=== PATIENT | female | born 1950 | race Caucasian/White ===

== ENCOUNTER 2016-06-06 16:48 | Inpatient (IN) | payer OTHER ==
[~2016-06-06] VITALS: Ht 152.4 cm; Wt 74.8 kg
--- NOTE | 2016-06-06 17:09 | NUR ---
Pt brought to bed 1b via private ambulance, dr potter at bedside for exam.
--- NOTE | 2016-06-06 17:10 | NUR ---
pt cleared and ready for transfer to [facility].
[2016-06-06] MEDS ORDERED: AMLO5TAB2 PO (17:25)
[2016-06-06] MEDS ORDERED: METH2.5T PO (17:25)
[2016-06-06] MEDS ORDERED: HYDR-552 PO (17:25)
[2016-06-06] MEDS ORDERED: OMEP40CA37 PO (17:25)
[2016-06-06] MEDS ORDERED: CLON2TAB4 PO (17:25)
[2016-06-06] MEDS ORDERED: GABA600T2 PO (17:25)
[2016-06-06] MEDS ORDERED: DULO60CA63 PO (17:25)
[2016-06-06] MEDS ORDERED: FOLI1TAB16 PO (17:25)
[2016-06-06] MEDS ORDERED: CIPR-262 PO (17:25)
[2016-06-06] MEDS ORDERED: HYDR200T4 PO (17:25)
[2016-06-06] MEDS ORDERED: LEVO100T10 PO (17:25)
[2016-06-06] MEDS ORDERED: SENN8.6T22 PO (17:25)
[2016-06-06] MEDS ORDERED: BUSP15TA3 PO (17:25)
[2016-06-06] MEDS ORDERED: BACL10TA PO (17:25)
[2016-06-06] MEDS ORDERED: LAMO25TA PO (17:25)
[2016-06-06] MEDS ORDERED: CHOL50004 PO (17:25)
[2016-06-06] MEDS ORDERED: ESCI20TA PO (17:25)
[2016-06-06] MEDS ORDERED: ALPR0.25 PO (17:25)
[2016-06-06 17:30] VITALS: BP 136/72
[2016-06-06] MEDS ORDERED: ACETAMINOPHEN 325 MG TABLET PO PRN (17:45)
[2016-06-06] MEDS ORDERED: MAG HYDROX/AL HYDROX/SIMETH 30 ML LIQUID UDC PO PRN (17:45)
[2016-06-06] MEDS ORDERED: MAGNESIUM HYDROXIDE 30 ML LIQUID UDC PO PRN (17:45)
--- NOTE | 2016-06-06 18:39 | NUR ---
SPOKE WITH DR AWAN, NOTIFIED OF NEW ADMISSION.
--- NOTE | 2016-06-06 18:50 | NUR ---
SPOKE WITH MARYJANE, STATES GABBAPENTIN IS TAKEN FOR "NERVES".
--- NOTE | 2016-06-06 18:51 | NUR ---
SPOKE WITH DR SHEIKH, ASKED HIM TO RECONCILE MEDS AND NOTIFIED HIM THE PT IS ON SEIZURE MEDS.
[2016-06-06] MEDS ORDERED: TEMAZEPAM 7.5 MG CAPSULE PO PRN (19:00)
[2016-06-06] MEDS ORDERED: METHOTREXATE SODIUM 2.5 MG TABLET PO SCH (19:15)
[2016-06-06] MEDS ORDERED: AMLODIPINE 5 MG TABLET PO SCH (19:15)
[2016-06-06] MEDS: LORAZEPAM 1 MG TABLET PO PRN (19:52)
[2016-06-06 20:00] VITALS: BP 129/72
[2016-06-06] MEDS: HYDROCODONE/APAP 5-325MG TABLET PO PRN (20:46)
[2016-06-06] MEDS: SENNOSIDES 1 TABLET PO SCH (20:56)
[2016-06-06] MEDS: AMLODIPINE 5 MG TABLET PO SCH (20:56)
--- NOTE | 2016-06-06 22:00 | NUR ---
received to care, sitting at nurses station, appearing anxious, but pleasant when approached. spoke to her spouse on the phone, and was given PRN naun, at 1951. by 2045, she stated that she felt less anxious, but was c/o severe pain (9/10)to the bilateral neck, so PRN norco, was given. as of 2199, she states minimal relief, 6/10. currently in activity room, watching tv. will continue to monitor closely.
[2016-06-06] MEDS: BACLOFEN 10 MG TABLET PO PRN (22:05)
--- NOTE | 2016-06-06 22:05 | NUR ---
PRN baclofen given for bilateral neck pain, 6/10, on pain scale.
--- NOTE | 2016-06-06 23:00 | NUR ---
states pain is now 5/10.
--- NOTE | 2016-06-07 00:30 | NUR ---
remains awake. PRN restoril was given, at this time.
--- NOTE | 2016-06-07 02:00 | NUR ---
remains awake. assisted to the bathroom, and bed. will continue to monitor closely.
--- NOTE | 2016-06-07 03:00 | NUR ---
appears to be asleep.
[2016-06-07] MEDS: HYDROCODONE/APAP 5-325MG TABLET PO PRN ×4 (03:46→20:32)
--- NOTE | 2016-06-07 03:46 | NUR ---
is now awake. c/o severe(9/10) pain to the bilateral neck. PRN norco was given at this time, at her request.
--- NOTE | 2016-06-07 04:46 | NUR ---
states moderate relief(6/10), from [place].
--- NOTE | 2016-06-07 05:00 | NUR ---
pt has been very manipulative over the course of the shift, attempting to split staff, accusing staff of "messing with" her, and accusing staff of switching chairs when she was in the bathroom, and stating that she only wants this fha underwriter, to assist her. pt was reassured. limits set on behavior. will continue to monitor closely.
[2016-06-07] MEDS: LORAZEPAM 1 MG TABLET PO PRN ×3 (05:25→15:54)
--- NOTE | 2016-06-07 05:25 | NUR ---
PRN ativan given for anxiety/agitation.
--- NOTE | 2016-06-07 06:39 | NUR ---
slept 1.25 hours, last night. is now dozing off to sleep. no distress noted.
[2016-06-07] MEDS ORDERED: LEVOTHYROXINE SODIUM 100 MCG TABLET PO SCH (07:00)
[2016-06-07 07:03] LABS: BASOPHILS % (AUTO) 0.4 % (0.0-2.0); EOSINOPHILS # (AUTO) 0.1 K/uL (0.0-0.7); HEMATOCRIT 44.5 % (37.0-47.0); LYMPHOCYTES # (AUTO) 2.9 K/uL (0.8-4.8); LYMPHOCYTES % (AUTO) 27.1 % (20.5-51.5); MEAN CORPUSCULAR HGB CONC 34 g/dL (32.0-37.0); MEAN CORPUSCULAR VOLUME 97.6 fL (81.0-99.0); MONOCYTES # (AUTO) 0.6 K/uL (0.1-1.30); MONOCYTES % (AUTO) 5.6 % (0.0-11.0); NEUTROPHILS # (AUTO) 7.1 K/uL (1.8-8.9); NEUTROPHILS % (AUTO) 65.9 % (38.5-71.5); PLATELET COUNT (AUTO) 215 K/uL (150-450); RED BLOOD CELL COUNT(AUTO) 4.56 MIL/uL (4.20-5.40); RED CELL DISTRIBUTION WIDTH 14.2 % (11.5-14.5); WHITE BLOOD COUNT (AUTO) 10.7 K/uL (4.0-11.2)
[2016-06-07 07:30] VITALS: BP 150/76
[2016-06-07 08:32] LABS: THYROID STIMULATING HORMONE 20.288 mIU/mL (0.358-3.740)
[2016-06-07] MEDS: CHOLECALCIFEROL 1,000 UNIT TABLET PO SCH (08:39)
[2016-06-07] MEDS: LAMOTRIGINE 25 MG TABLET PO SCH (08:39)
[2016-06-07] MEDS: NICOTINE 21 MG/24HR PATCH TD SCH (08:40)
[2016-06-07] MEDS: FOLIC ACID 1 MG TABLET PO SCH (08:40)
[2016-06-07] MEDS: HYDROXYCHLOROQUINE SULFATE 200 MG TABLET PO SCH ×2 (08:40→17:34)
[2016-06-07] MEDS: AMLODIPINE 5 MG TABLET PO SCH ×2 (08:40→20:22)
[2016-06-07 08:41] LABS: ALBUMIN 3.7 g/dL (3.4-5.0); BILIRUBIN,TOTAL 0.5 mg/dL (0.2-1.0); PHOSPHOROUS 4.3 mg/dL (2.5-4.9); POTASSIUM 3.8 mmol/L (3.5-5.1); TOTAL PROTEIN, SERUM 7.4 g/dL (6.4-8.2)
--- NOTE | 2016-06-07 10:57 | NUR ---
Initial discharge plan: SW spoke with patient regarding initial discharge plan.She resides within a home ([address] [place] [address];[place] [address]) with her (Edwin, ).She reported wanting to return home once cleared for discharge.She reported that her could provide transportation back home.SW attempted to contact her , but was unable to reach him.MIKEY left a voicemail for the pt's and is awaiting communication.MIKEY will speak to MD, pt, and family to ensure a safe discharge plan is created.MIKEY will ensure a proper discharge plan is created.
--- NOTE | 2016-06-07 13:00 | NUR ---
GPS/RN- patient visiting today at 1230pm, Jose Luis. Patients asked if he had anything to disclose of belongings or anything being brought in, he verbalized that he was just bringing in some clothing, shampoo and conditioner. Belongings logged. Shampoo and conditioner placed in her locker, available to use when needed. Upon visit with the , I entered the room to place patients clothing in her night stand, observed patients placing white round pills in patients right hand at this time. patient closing hand immediately upon noticing I was in room. Patient instructed to please step out of the unit at this time. patient instructed to empty her hand. patient placing three pills on over head table, not opening her hand completely but keeping two fingers closed, patient redirected to open her hand completely again, two more white pills came out of her hand. Pills noted are TEVA white round with numbers 834, pills are Clonazepam 2mg each, total of 5 pills= 10mg. patient checked for further contraband at this time. Discussed with patient at great length that medications are not allowed to be brought from home unless needed , medications need to be checked in with nurses and discussed with Medical doctor or Psychiatrist to administer if we do not carry anything formulary. patient redirected at this time. Dr Nuñez informed. Spoke with patients Jose Luis, educated on medication administration, security at side. verbalized he understands, he verbalized " she kept bugging me for it so I brought it". He confirmed that it was in fact Clonazepam that he brought. Juliana, Nursing [place] Chalker, notified about incident . was asked to leave at this time due to safety. verbalized understanding.
[2016-06-07] MEDS: BACLOFEN 10 MG TABLET PO PRN (13:01)
--- NOTE | 2016-06-07 13:05 | NUR ---
Reviewed psychosocial done by Eduar Oconnor. Addendum: 06/07/16 at 1320 by ABBI JENSEN Amended: Links added.
--- NOTE | 2016-06-07 13:14 | NUR ---
WOUND CARE CONSULT: PATIENT SEEN AND SKIN ASSESSMENT DONE. PATIENT ALERT, AMBULATORY WITH WALKER, INDEPENDENT WITH BED MOBILITY, CONTINENT, JEANNE 18. SEE TODAY'S SKIN ASSESSMENT IN PCS ALONG WITH RECOMMENDATIONS DISCUSSED WITH NURSING STAFF. MD IN AGREEMENT WITH PLAN OF CARE. Addendum: 06/07/16 at 1316 by JONO ANNE WNDNU Amended: Links added.
[2016-06-07] MEDS: NEOMY/BACITRAC/POLYMI OINT 28.35 GM TUBE TOP SCH ×2 (13:15→18:00)
--- NOTE | 2016-06-07 15:15 | NUR ---
UR Note: MIKEY spoke with Cyndie MIRAMONTES at [facility] [ [id number]/ Fx: [phone]] and faxed current clinicals. Cyndie confirmed she received clinicals, and is awaiting authorization. Tracking #[id number]
[2016-06-07 15:24] VITALS: BP 131/70
[2016-06-07] MEDS ORDERED: busPIRone 10 MG TABLET PO SCH ×2 (17:00→20:30)
--- NOTE | 2016-06-07 17:00 | NUR ---
GPS/RN- Discussed with Dr Motta upon rounds again earlier incident, bringing in narcotic medication to patient. Incident discussed with Garage Door Service Technician of Automobile Upholstery Trim Installer Rebecca as well. Denial of rights done at this time for the right to visitor, patient may not be visited by her Jose Luis due to high risk incident. brought in 5 tablets, they were Clonazepam 2mg tablets for a total of 10mg. Patient notified and contacted Jose Luis, verbalized understanding.
[2016-06-07] MEDS: ESCITALOPRAM OXALATE 10 MG TABLET PO SCH (17:34)
[2016-06-07] MEDS: DULOXETINE 60 MG CAPSULE.DR PO SCH (17:34)
[2016-06-07] MEDS: CLONAZEPAM 1 MG TABLET PO PRN (19:55)
[2016-06-07 20:13] VITALS: BP 121/82
[2016-06-07] MEDS: SENNOSIDES 1 TABLET PO SCH (20:22)
[2016-06-07] MEDS: SULFAMETH/TRIMETH 800/160 MG TABLET PO SCH (20:22)
--- NOTE | 2016-06-07 22:00 | NUR ---
received to care, visible on unit, pleasant upon approach. interacts minimally with peers, but is able to make her needs known, to staff. PRN sameeraonopin was given, at 1954, for anxiety, which was effective, by 2099. PRN adeco was given at 2031 for bilateral neck pain 9/10, which was effective(5/10), by 2129. she was assisted with taking her contact lenses out, and is lying in bed. no distress noted. will continue to monitor closely.
--- NOTE | 2016-06-07 22:40 | NUR ---
appears to be asleep. no distress noted.
[2016-06-08] MEDS: HYDROCODONE/APAP 5-325MG TABLET PO PRN ×4 (02:33→21:18)
[2016-06-08] MEDS: CLONAZEPAM 1 MG TABLET PO PRN ×3 (04:45→20:02)
--- NOTE | 2016-06-08 04:45 | NUR ---
PRN klonopin given for anxiety.
[2016-06-08] MEDS: LEVOTHYROXINE SODIUM 125 MCG TABLET PO SCH (06:36)
[2016-06-08 07:30] VITALS: BP 123/78
[2016-06-08] MEDS: NICOTINE 21 MG/24HR PATCH TD SCH (09:02)
[2016-06-08] MEDS: DULOXETINE 60 MG CAPSULE.DR PO SCH (09:02)
[2016-06-08] MEDS: FOLIC ACID 1 MG TABLET PO SCH (09:02)
[2016-06-08] MEDS: SULFAMETH/TRIMETH 800/160 MG TABLET PO SCH ×2 (09:03→20:02)
[2016-06-08] MEDS: LAMOTRIGINE 25 MG TABLET PO SCH (09:03)
[2016-06-08] MEDS: ESCITALOPRAM OXALATE 10 MG TABLET PO SCH (09:03)
[2016-06-08] MEDS: CHOLECALCIFEROL 1,000 UNIT TABLET PO SCH (09:04)
[2016-06-08] MEDS: AMLODIPINE 5 MG TABLET PO SCH ×2 (09:05→20:02)
[2016-06-08] MEDS: HYDROXYCHLOROQUINE SULFATE 200 MG TABLET PO SCH ×2 (10:14→16:13)
[2016-06-08] MEDS: NEOMY/BACITRAC/POLYMI OINT 28.35 GM TUBE TOP SCH (10:32)
[2016-06-08] MEDS: BACLOFEN 10 MG TABLET PO PRN ×2 (12:11→20:02)
[2016-06-08] MEDS ORDERED: PNEUMOCOCCAL 23-VAL P-SAC VAC 0.5 ML VIAL IM ONE (15:45)
[2016-06-08 16:00] VITALS: BP 123/63
[2016-06-08] MEDS: busPIRone 5 MG TABLET PO SCH (16:13)
[2016-06-08] MEDS: SENNOSIDES 1 TABLET PO SCH (20:02)
[2016-06-08 20:03] VITALS: BP 133/68
[2016-06-09] MEDS: HYDROCODONE/APAP 5-325MG TABLET PO PRN ×2 (04:07→10:16)
[2016-06-09] MEDS: LEVOTHYROXINE SODIUM 125 MCG TABLET PO SCH (06:14)
[2016-06-09] MEDS: CLONAZEPAM 1 MG TABLET PO PRN (06:14)
[2016-06-09 07:30] VITALS: BP 114/58
[2016-06-09] MEDS: busPIRone 5 MG TABLET PO SCH (08:11)
[2016-06-09] MEDS: NICOTINE 21 MG/24HR PATCH TD SCH (08:11)
[2016-06-09] MEDS: LAMOTRIGINE 25 MG TABLET PO SCH (08:12)
[2016-06-09] MEDS: BACLOFEN 10 MG TABLET PO PRN (08:12)
[2016-06-09] MEDS: FOLIC ACID 1 MG TABLET PO SCH (08:12)
[2016-06-09] MEDS: CHOLECALCIFEROL 1,000 UNIT TABLET PO SCH (08:12)
[2016-06-09] MEDS: DULOXETINE 60 MG CAPSULE.DR PO SCH (08:12)
[2016-06-09] MEDS: SULFAMETH/TRIMETH 800/160 MG TABLET PO SCH (08:12)
[2016-06-09] MEDS: ESCITALOPRAM OXALATE 10 MG TABLET PO SCH (08:12)
[2016-06-09] MEDS: HYDROXYCHLOROQUINE SULFATE 200 MG TABLET PO SCH (08:12)
[2016-06-09 08:13] VITALS: BP 114/58
[2016-06-09] MEDS: AMLODIPINE 5 MG TABLET PO SCH (08:13)
[2016-06-09] MEDS: NEOMY/BACITRAC/POLYMI OINT 28.35 GM TUBE TOP SCH (09:15)
--- NOTE | 2016-06-09 09:24 | NUR ---
Pt states she has all medications listed on TMS at home, and does not need any prescriptions. Stated the only prescription she needs is antibiotic.
--- NOTE | 2016-06-09 11:25 | NUR ---
GPS: Nursing Notes: Discharge Notes: Patient is awake and responding to her name, cooperative and pleasant with staff, A/Ox4, compliant with her medications, ambulatory, self care, denies any SI/HI, denies any AH/VH, denies any SOB, denies any pain or discomfort at this time, medicated for pain per MD orders, discharge home with her , Edwin Soliz at [address] [place] [address], prescription and instructions given to patient, took all her belongings with her, transported home via private vehicle with her Edwincaridad Soliz, patient to follow up with her own psychiatrist and mailhouse operator as soon as possible, patient stated , 'Yes, I have all my medications at home.. I will see my own doctors.."
[2016-06-12] MEDS ORDERED: METHOTREXATE SODIUM 2.5 MG TABLET PO SCH (09:00)
[2016-06-19] MEDS ORDERED: METHOTREXATE SODIUM 2.5 MG TABLET PO SCH (09:00)
== END 2016-06-09 11:30 | disposition home or self-care (01) | DRG 881 ==
LOC: ER 16:53 → GPS 17:22
PROVIDERS: ADMIT Psychiatry & Neurology Psychiatry; ATTEND Psychiatry & Neurology Psychiatry
DX: F32.9 Major depressive disorder, single episode, unspecified (principal); F11.20 Opioid dependence, uncomplicated; F13.20 Sedative, hypnotic or anxiolytic dependence, uncomplicated; F29 Unspecified psychosis not due to a substance or known physiological condition; G40.909 Epilepsy, unspecified, not intractable, without status epilepticus; F41.9 Anxiety disorder, unspecified; G89.29 Other chronic pain; E03.9 Hypothyroidism, unspecified; I10 Essential (primary) hypertension; F17.210 Nicotine dependence, cigarettes, uncomplicated; R73.03 Prediabetes; L98.419 Non-pressure chronic ulcer of buttock with unspecified severity; Z87.828 Personal history of other (healed) physical injury and trauma; E83.119 Hemochromatosis, unspecified; Z86.59 Personal history of other mental and behavioral disorders; L02.32 Furuncle of buttock
CPT/HCPCS: 36415; 83550; 83735; 84100; 84443; 85025; 86140; 90732; A4663

== ENCOUNTER 2017-05-25 21:43 | Inpatient (IN) | payer OTHER ==
[~2017-05-25] VITALS: Ht 177.8 cm; Wt 73.5 kg
[~2017-05-25 21:43] MED LIST: AMLO5TAB2 PO; BACL10TA PO; CHOL50004 PO; CIPR-262 PO; FOLI1TAB16 PO; HYDR-552 PO; HYDR200T4 PO; LAMO25TA PO; LEVO100T10 PO; METH2.5T PO; OMEP40CA37 PO; SENN8.6T22 PO
[2017-05-25] MEDS ORDERED: CIPR500T5 PO (22:50)
[2017-05-25] MEDS ORDERED: CLON2TAB4 PO (22:50)
[2017-05-25] MEDS ORDERED: DULO60CA45 PO (22:50)
[2017-05-25] MEDS ORDERED: ALPR0.255 PO (22:50)
[2017-05-25] MEDS ORDERED: ESCI20TA PO (22:50)
[2017-05-25] MEDS ORDERED: BUSP15TA3 PO (22:50)
[2017-05-25] MEDS ORDERED: GABA600T2 PO (22:50)
[2017-05-26] MEDS ORDERED: LORAZEPAM 0.5 MG TABLET PO PRN (01:15)
[2017-05-26] MEDS ORDERED: ZOLPIDEM 5 MG TABLET PO PRN (01:15)
[2017-05-26] MEDS ORDERED: MAG HYDROX/AL HYDROX/SIMETH 30 ML LIQUID UDC PO PRN (01:15)
[2017-05-26] MEDS ORDERED: MAGNESIUM HYDROXIDE 30 ML LIQUID UDC PO PRN (01:15)
[2017-05-26] MEDS ORDERED: ACETAMINOPHEN 325 MG TABLET PO PRN (01:15)
[2017-05-26 01:30] VITALS: BP 144/67
[2017-05-26] MEDS ORDERED: LORAZEPAM 1 MG TABLET PO PRN (07:15)
[2017-05-26 07:30] VITALS: BP 142/65
[2017-05-26 12:03] LABS: BASOPHILS # (AUTO) 0.1 K/uL (0.0-8.0); BASOPHILS % (AUTO) 0.8 % (0.0-2.0); EOSINOPHILS % (AUTO) 0.1 % (0.0-7.0); HEMATOCRIT 40.8 % (31.2-41.9); HEMOGLOBIN 14.3 g/dL (10.9-14.3); LYMPHOCYTES # (AUTO) 0.9 K/uL (20.0-40.0); LYMPHOCYTES % (AUTO) 14.4 % (20.5-51.5); MEAN CORPUSCULAR HEMOGLOBIN 34.6 uug (24.7-32.8); MEAN CORPUSCULAR HGB CONC 35 g/dL (32.3-35.6); MEAN CORPUSCULAR VOLUME 98.8 fL (75.5-95.3); MONOCYTES # (AUTO) 0.4 K/uL (2.0-10.0); MONOCYTES % (AUTO) 7.1 % (0.0-11.0); NEUTROPHILS # (AUTO) 4.8 K/uL (1.8-8.9); NEUTROPHILS % (AUTO) 77.6 % (38.5-71.5); PLATELET COUNT (AUTO) 280 K/uL (179-408); RED BLOOD CELL COUNT(AUTO) 4.13 MIL/uL (3.63-4.92); WHITE BLOOD COUNT (AUTO) 6.2 K/uL (3.8-11.8)
[2017-05-26 12:08] LABS: CREATININE 0.8 mg/dL (0.6-1.3); POTASSIUM 3.4 mmol/L (3.5-5.1)
[2017-05-26 13:23] LABS: IRON, SERUM 62 ug/dL (50-175)
[2017-05-26 13:33] LABS: THYROID STIMULATING HORMONE 7.257 mIU/mL (0.358-3.740)
[2017-05-26 13:51] LABS: BILIRUBIN,DIRECT 0.1 mg/dL (0.0-0.2); BILIRUBIN,TOTAL 0.5 mg/dL (0.2-1.0); PHOSPHOROUS 4.2 mg/dL (2.5-4.9); TOTAL PROTEIN, SERUM 7.1 g/dL (6.4-8.2)
[2017-05-26] MEDS: FOLIC ACID 1 MG TABLET PO SCH (13:59)
[2017-05-26] MEDS: DULOXETINE 60 MG CAPSULE.DR PO SCH (13:59)
[2017-05-26] MEDS: busPIRone 5 MG TABLET PO SCH ×2 (13:59→16:38)
[2017-05-26] MEDS: ESCITALOPRAM OXALATE 10 MG TABLET NG SCH (13:59)
[2017-05-26] MEDS: GABAPENTIN 300 MG CAPSULE PO SCH ×2 (13:59→16:38)
[2017-05-26] MEDS: LAMOTRIGINE 25 MG TABLET PO SCH ×2 (14:00→20:10)
[2017-05-26] MEDS: CLONAZEPAM 0.5 MG TABLET PO SCH ×2 (14:00→16:39)
[2017-05-26] MEDS: PANTOPRAZOLE SODIUM 40 MG TABLET.DR PO SCH (14:00)
[2017-05-26] MEDS ORDERED: BACL10TA PO (14:18)
[2017-05-26] MEDS ORDERED: POTASSIUM CHLORIDE 20 MEQ TAB.PRT.SR PO ONE (14:45)
[2017-05-26 15:14] VITALS: BP 140/74
[2017-05-26] MEDS: AMLODIPINE 5 MG TABLET PO SCH (16:39)
[2017-05-26] MEDS: HYDROXYCHLOROQUINE SULFATE 200 MG TABLET PO SCH (16:43)
[2017-05-26] MEDS: SENNOSIDES 1 TABLET PO SCH (20:10)
[2017-05-26 20:27] VITALS: BP 137/58
[2017-05-27] MEDS: HYDROCODONE/APAP 5-325MG TABLET PO PRN ×2 (01:27→20:36)
[2017-05-27] MEDS: LEVOTHYROXINE SODIUM 100 MCG TABLET PO SCH (06:00)
[2017-05-27] MEDS: PANTOPRAZOLE SODIUM 40 MG TABLET.DR PO SCH (06:00)
[2017-05-27 08:00] VITALS: BP 144/76
[2017-05-27] MEDS ORDERED: LEVOTHYROXINE SODIUM 100 MCG TABLET PO SCH (09:00)
[2017-05-27] MEDS: ESCITALOPRAM OXALATE 10 MG TABLET NG SCH (09:08)
[2017-05-27] MEDS: CLONAZEPAM 0.5 MG TABLET PO SCH ×3 (09:08→17:09)
[2017-05-27] MEDS: DULOXETINE 60 MG CAPSULE.DR PO SCH (09:08)
[2017-05-27] MEDS: LAMOTRIGINE 25 MG TABLET PO SCH ×2 (09:08→20:25)
[2017-05-27] MEDS: FOLIC ACID 1 MG TABLET PO SCH (09:08)
[2017-05-27] MEDS: GABAPENTIN 300 MG CAPSULE PO SCH ×3 (09:09→17:09)
[2017-05-27] MEDS: HYDROXYCHLOROQUINE SULFATE 200 MG TABLET PO SCH ×2 (09:09→17:10)
[2017-05-27] MEDS: AMLODIPINE 5 MG TABLET PO SCH ×2 (09:09→17:10)
[2017-05-27] MEDS: busPIRone 5 MG TABLET PO SCH ×3 (09:09→17:09)
[2017-05-27] MEDS ORDERED: Z GUARD REMEDY PASTE 57 GM TUBE TOP PRN (12:15)
[2017-05-27 16:00] VITALS: BP 133/77
[2017-05-27 18:01] LABS: *BLOOD, URINE NEGATIVE (NEGATIVE); *COLOR,URINE DARK YELLOW (YELLOW); *KETONES,URINE NEGATIVE (NEGATIVE); *PROTEIN,URINE 1+ (NEGATIVE); LEUKOCYTE ESTERASE ,URINE NEGATIVE (NEGATIVE); NITRITE, URINE NEGATIVE (NEGATIVE); PH,URINE 6.5 (5.0-8.0); UGLUCOSE NEGATIVE (NEGATIVE)
[2017-05-27 19:58] LABS: *BILIRUBIN,URIN NEGATIVE (NEGATIVE); *CLARITY,URINE HAZY (CLEAR)
[2017-05-27 20:00] VITALS: BP 129/74
[2017-05-27 20:02] LABS: CALCIUM OXALATE CRYSTALS,UR MODERATE /HPF (NONE SEEN); MUCUS,URINE MANY /LPF (0-FEW); SQUAMOUS EPITHELIAL CELL,UR MODERATE /HPF (NONE SEEN); WBC,URINE 0-3 /HPF (0-3)
[2017-05-27] MEDS: SENNOSIDES 1 TABLET PO SCH (20:25)
[2017-05-28] MEDS: HYDROCODONE/APAP 5-325MG TABLET PO PRN ×2 (02:52→10:16)
[2017-05-28] MEDS: LEVOTHYROXINE SODIUM 100 MCG TABLET PO SCH (06:28)
[2017-05-28] MEDS: PANTOPRAZOLE SODIUM 40 MG TABLET.DR PO SCH (06:28)
[2017-05-28 07:30] VITALS: BP 149/74
[2017-05-28] MEDS ORDERED: METHOTREXATE SODIUM 2.5 MG TABLET PO SCH (09:00)
[2017-05-28] MEDS: LAMOTRIGINE 25 MG TABLET PO SCH (09:16)
[2017-05-28] MEDS: GABAPENTIN 300 MG CAPSULE PO SCH (09:16)
[2017-05-28] MEDS: CLONAZEPAM 0.5 MG TABLET PO SCH (09:16)
[2017-05-28] MEDS: DULOXETINE 60 MG CAPSULE.DR PO SCH (09:16)
[2017-05-28] MEDS: ESCITALOPRAM OXALATE 10 MG TABLET NG SCH (09:16)
[2017-05-28 09:17] VITALS: BP 149/74
[2017-05-28] MEDS: FOLIC ACID 1 MG TABLET PO SCH (09:17)
[2017-05-28] MEDS: AMLODIPINE 5 MG TABLET PO SCH (09:17)
[2017-05-28] MEDS: busPIRone 5 MG TABLET PO SCH (09:17)
[2017-05-28] MEDS: HYDROXYCHLOROQUINE SULFATE 200 MG TABLET PO SCH (09:17)
== END 2017-05-28 12:15 | disposition home or self-care (01) | DRG 885 ==
LOC: ER 21:43 → GPS 05-26 00:45
PROVIDERS: ADMIT Psychiatry & Neurology Psychiatry; ATTEND Hospitalist
DX: F31.9 Bipolar disorder, unspecified (principal); N17.0 Acute kidney failure with tubular necrosis; E44.0 Moderate protein-calorie malnutrition; L89.153 Pressure ulcer of sacral region, stage 3; E87.0 Hyperosmolality and hypernatremia; F23 Brief psychotic disorder; Z91.14 Patient's other noncompliance with medication regimen; E86.0 Dehydration; T39.9 Poisoning by, adverse effect of and underdosing of unspecified nonopioid analgesic, antipyretic and antirheumatic; Z79.899 Other long term (current) drug therapy; I12.9 Hypertensive chronic kidney disease with stage 1 through stage 4 chronic kidney disease, or unspecified chronic kidney disease; N18.2 Chronic kidney disease, stage 2 (mild); E87.6 Hypokalemia; F17.210 Nicotine dependence, cigarettes, uncomplicated; G40.909 Epilepsy, unspecified, not intractable, without status epilepticus; M06.9 Rheumatoid arthritis, unspecified; K21.9 Gastro-esophageal reflux disease without esophagitis; G89.29 Other chronic pain; M54.2 Cervicalgia; E03.9 Hypothyroidism, unspecified; E53.8 Deficiency of other specified B group vitamins; Z68.23 Body mass index [BMI] 23.0-23.9, adult; F41.9 Anxiety disorder, unspecified
CPT/HCPCS: 36415; 82306; 82746; 83550; 83735; 84100; 84443; 85025; 87086; 93005; A4663; J8610